=== PATIENT | male | born 1960 ===

== ENCOUNTER 2023-08-23 11:58 | Inpatient (IN) | payer MEDICARE, OTHER ==
[2023-08-23 12:27] LABS: BASOPHILS ABSOLUTE AUTO 0.1 K/mm3 (0.0-0.2); BASOPHILS PERCENT AUTO 0.5 % (0.0-1.0); EOSINOPHILS ABSOLUTE AUTO 0.1 K/mm3 (0.0-0.4); HEMATOCRIT 32.7 % (42.0-52.0); HEMOGLOBIN 11.4 gm/dl (14.0-18.0); IMMATURE GRAN ABSOLUTE AUTO 0.03 K/mm3 (0.00-0.05); IMMATURE GRAN PERCENT AUTO 0.3 % (0.0-0.4); LYMPHOCYTES PERCENT AUTO 10.4 % (24.0-44.0); MEAN CORPUSCULAR HEMOGLOBIN 31.3 pg (28.0-32.0); MEAN CORPUSCULAR HGB CONC 34.9 g/dl (32.0-36.0); MEAN CORPUSCULAR VOLUME 89.8 fl (83.0-99.0); MONOCYTES ABSOLUTE AUTO 0.6 K/mm3 (0.0-0.8); MONOCYTES PERCENT AUTO 5.6 % (0.0-8.0); NEUTROPHILS ABSOLUTE AUTO 8.3 K/mm3 (1.8-7.7); NEUTROPHILS PERCENT AUTO 82.2 % (41.0-71.0); PLATELET COUNT,PLT 223 K/mm3 (150-400); RED BLOOD CELL COUNT 3.64 M/mm3 (4.52-5.90); WHITE BLOOD CELL COUNT,WBC 10.04 K/mm3 (3.9-11.3)
[2023-08-23] MEDS: Metoprolol Tartrate 5 MG/5 ML SDV IVPUSH ONE (12:32)
[2023-08-23 12:40] LABS: INR 0.98; PROTHROMBIN TIME 10.5 SECONDS (9.7-12.0)
[2023-08-23 12:46] LABS: D-DIMER QUANTITATIVE 1.03 mg/L (0.19-0.50)
[2023-08-23 12:49] LABS: A/G RATIO 0.9 (1-2); ALBUMIN 3.1 g/dl (3.4-5.0); ANION GAP 15.5 (5-15); BILIRUBIN TOTAL 0.6 mg/dL (0.2-1.0); BUN/CREATININE RATIO 12.9 (14-18); CALCIUM 7.8 mg/dL (8.5-10.1); CREATININE 4.9 mg/dL (0.7-1.3); EST CRCL DRUG DOSING (CG) 14.05 mL/min; MAGNESIUM 1.9 mg/dL (1.8-2.4); POTASSIUM,K 4.5 mEq/L (3.5-5.1); PROTEIN TOTAL,TP 6.7 g/dl (6.4-8.2)
[2023-08-23] MEDS: Aspirin 81 MG Tab.Chew PO ONE (13:14)
[2023-08-23] MEDS: hydrALAZINE 20 MG/ML SDV IVPUSH ONE (15:43)
[2023-08-23] MEDS: Sodium Chloride 0.9% 1,000 ML IV ONE (15:44)
[2023-08-23] MEDS: Sodium Chloride 0.9% 10 ML Syringe FLUSH PRN (15:45)
[2023-08-23 16:16] LABS: APPEARANCE,URINE CLEAR (Clear); BILIRUBIN,URINE NEGATIVE (Negative); COLOR,URINE YELLOW (Yellow); GLUCOSE,URINE NEGATIVE (Negative); KETONES,URINE NEGATIVE (Negative); LEUKOCYTE ESTERASE,URINE NEGATIVE (Negative); NITRITE,URINE NEGATIVE (Negative); OCCULT BLOOD,URINE 2+ (Negative); PROTEIN,URINE 3+ (Negative); UROBILINOGEN,URINE 0.2 (0.2-1.0)
[2023-08-23 16:20] LABS: CREATININE,URINE RAND 151.9 mg/dL (30.0-125.0)
[2023-08-23] MEDS ORDERED: Ondansetron 4 MG/2 ML SDV IV PRN (16:24)
[2023-08-23] MEDS ORDERED: Acetaminophen 325 MG Tab PO PRN (16:24)
[2023-08-23 16:44] LABS: BACTERIA,URINE FEW /hpf (FEW); MUCUS,URINE FEW /hpf (FEW); SQUAMOUS EPITHELIAL CELLS,UR 0-5 /hpf (0-5); WBC,URINE 0-5 /hpf (0-5)
[2023-08-23 16:52] LABS: CREATININE,URINE RAND 153.2 mg/dL (30.0-125.0)
[2023-08-23] MEDS: amLODIPine 5 MG Tab PO SCH (17:05)
[2023-08-23 17:36] LABS: PROTEIN CREATININE RATIO,URINE 6531.3 mg/g (0-149); PROTEIN,URINE RANDOM 1000.6 mg/dL (0.0-11.8)
[2023-08-23] MEDS: Albuterol 6.7 GM Inhaler INH PRN (21:47)
[2023-08-24 06:48] LABS: A/G RATIO 0.8 (1-2); ALBUMIN 2.7 g/dl (3.4-5.0); BILIRUBIN TOTAL 0.9 mg/dL (0.2-1.0); BUN/CREATININE RATIO 13.4 (14-18); CALCIUM 7.9 mg/dL (8.5-10.1); CREATININE 4.7 mg/dL (0.7-1.3); EST CRCL DRUG DOSING (CG) 14.65 mL/min; PROTEIN TOTAL,TP 5.9 g/dl (6.4-8.2)
[2023-08-24] MEDS: Hydrochlorothiazide 12.5 MG Cap PO SCH (08:20)
[2023-08-24] MEDS: Labetalol 100 MG/20 ML MDV IVPUSH PRN (10:47)
[2023-08-24] MEDS: amLODIPine 5 MG Tab PO ONE (12:08)
[2023-08-24] MEDS: Labetalol 100 MG/20 ML MDV IVPUSH ONE (13:50)
[2023-08-24] MEDS ORDERED: niCARdipine HCl 25 MG in Sodium Chloride 0.9% 250 ML IV SCH (14:30)
[2023-08-24] MEDS: hydrALAZINE 20 MG/ML SDV IVPUSH ONE ×2 (14:43→14:49)
[2023-08-24] MEDS: Lisinopril 5 MG Tab PO ONE ×2 (15:47→18:03)
[2023-08-24] MEDS: amLODIPine 10 MG Tab PO SCH (20:15)
[2023-08-25] MEDS: Melatonin 3 MG Tab PO PRN (00:43)
[2023-08-28 18:46] LABS: ALBUMIN 3.11 g/dL (3.75-5.01); ALPHA 1 GLOBULIN 0.35 g/dL (0.19-0.46); ALPHA 2 GLOBULIN 0.58 g/dL (0.48-1.05); BETA GLOBULIN 0.62 g/dL (0.48-1.10); GAMMA 0.94 g/dL (0.62-1.51); TOTAL PROTEIN, SERUM 5.6 g/dL (6.3-8.2)
[2023-08-29 05:47] LABS: MYELOPEROXIDASE AB 0 AU/mL (0-19); SERINE PROTEINASE 3, IGG 0 AU/mL (0-19)
== END 2023-08-25 13:01 | disposition home or self-care (01) | DRG 305 ==
LOC: JD.ED 11:58 → OBSVTOIN 15:33 → JD.MS 15:33
PROVIDERS: ADMIT Internal Medicine; ATTEND Student in an Organized Health Care Education/Training Program
DX: I16.0 Hypertensive urgency (principal); N28.89 Other specified disorders of kidney and ureter; Z87.891 Personal history of nicotine dependence; N18.5 Chronic kidney disease, stage 5; I12.0 Hypertensive chronic kidney disease with stage 5 chronic kidney disease or end stage renal disease; Z72.0 Tobacco use; D63.1 Anemia in chronic kidney disease
CPT/HCPCS: 36415; 71045; 71045-26; 76775; 76775-26; 80053; 81001; 82570; 82728; 83516; 83540; 83735; 84153; 84155; 84156; 84165; 84300; 84484; 85025; 85379; 85610; 85652; 86036; 86140; 93005; 93010; 94640; 96361; 96374; 96375; 99232; 99239; 99283; 99285-25; A9270-GY; J0360; J1921; J3490; J7030